=== PATIENT | female | born 1930 | race Caucasian/White ===

== ENCOUNTER 2017-07-25 13:01 | Inpatient (IN) | payer MEDICARE ==
[2017-07-25 13:20] LABS: BASO % 0.6 % (0-6); EOS % 0.6 % (0-6); GRAN % 66.6 % (47-80); HEMATOCRIT 24.3 % (35.0-47.0); LYMPH % 19.8 % (16-45); MEAN CELL VOLUME 97.2 fl (81-97); MEAN CORPUSCULAR HGB CONC 28.8 g/dl (32-36); MEAN PLATELET VOLUME 11.4 fl (7.4-10.4); MONO % 12.4 % (0-9); PLATELET COUNT 154 K/uL (130-400); RED CELL DISTRIBUTION WIDTH 16.8 % (11.5-14.5); WHITE BLOOD COUNT W/O DIFF 3.4 K/uL (4.2-12.2)
[2017-07-25] MEDS ORDERED: 0.9 % SODIUM CHLORIDE 1000ML 1,000 ML IV PRN (13:50)
[2017-07-25 14:03] LABS: ABO GROUP O; ANTIBODY SCREEN NEGATIVE (NEGATIVE); RH TYPE POSITIVE
[2017-07-25 14:04] LABS: IMMED. SPIN CROSSMATCH COMPATIBLE
[2017-07-25] MEDS ORDERED: POLYETHYLENE GLY 17 GM PACKET PO ONE (16:33)
[2017-07-25] MEDS: AMLODIPINE BESYLATE 5MG TAB PO SCH (18:52)
[2017-07-25] MEDS: CLONIDINE HCL 0.1 MG TABLET PO SCH ×2 (19:59→21:17)
[2017-07-25] MEDS: PANTOPRAZOLE SODIUM IV 40 MG VIAL IVP SCH (20:54)
[2017-07-25 21:05] LABS: HEMATOCRIT 28.2 % (35.0-47.0); HEMOGLOBIN 8.2 gm/dl (11.6-16.0)
[2017-07-25] MEDS: SERTRALINE HCL 50 MG TABLET PO SCH (21:57)
[2017-07-25] MEDS: METOPROLOL TART 25 MG TABLET PO SCH (21:57)
[2017-07-25] MEDS: TRAZODONE 50 MG TABLET PO PRN (21:58)
[2017-07-25] MEDS ORDERED: MAGNESIUM CITRATE 296 ML BTL PO ONE (22:57)
[2017-07-26 06:48] LABS: HEMATOCRIT 30.1 % (35.0-47.0); HEMOGLOBIN 8.7 gm/dl (11.6-16.0)
[2017-07-26] MEDS: PANTOPRAZOLE SODIUM IV 40 MG VIAL IVP SCH ×2 (09:48→21:19)
--- NOTE | 2017-07-26 11:10 | History and Physical Report ---
DATE OF ADMISSION: 07/25/2017 Surgeon: Trent Flores DO CHIEF COMPLAINT: Anemia, short of breath, weakness. HISTORY OF PRESENT ILLNESS: This 87-year-old female had noticed black tarry stools approximately 10 days ago, weak, short of breath. She was seen in the office, ordered outpatient CBC, which showed a hemoglobin of 7.0. Actually, she had a hemoglobin done a week earlier which was about 5.9, and she was placed on iron therapy, but she is still very short of breath, weak, and at this point I felt it necessary that she gets a blood transfusion of 1 unit of blood and a GI consult to see if she has an ulcer or other GI abnormalities that is bleeding. PAST MEDICAL HISTORY: Hypertension, anxiety, GERD. PAST SURGICAL HISTORY: Hysterectomy and appendectomy. MEDICATIONS ON ADMISSION: 1. Simvastatin 10 mg at bedtime. 2. Iron 325 q.daily. 3. Fenofibrate 160 daily. 4. Amlodipine 5 mg daily. 5. Vitamin D3, 50,000 units weekly. 6. Sertraline 25 daily. 7. Omeprazole 20 mg b.i.d. 8. Metoprolol tartrate 25 mg b.i.d. 9. Clonidine 0.2 mg b.i.d. 10. Trazodone 25 mg at h.s. 11. Ascorbic acid 1000 mg daily. 12. Calcium with vitamin D, 1 a day. ALLERGIES: PENICILLIN, SULFA. FAMILY PSYCHOSOCIAL HISTORY: Unremarkable. She never smoked, no alcohol or drug use. Mother had cancer and heart disease. REVIEW OF SYSTEMS: HEENT: No upper respiratory infection symptoms, cough, cold, or congestion. CARDIOVASCULAR: No chest pain, palpitations, or arrhythmias. RESPIRATORY: Short of breath when she walks around. Feels like she is going to pass out. GASTROINTESTINAL: No nausea, vomiting, diarrhea. She had black melanotic stools approximately 10 days ago. GENITOURINARY: No dysuria, hematuria, or frequency or burning on urination. MUSCULOSKELETAL: No joint or bone abnormalities. NEUROLOGIC: No CVA paralysis or paresthesias. ENDOCRINE: No diabetes or thyroid disease. INTEGUMENT: No rash, ulcer, change in moles, no yellow skin. PHYSICAL EXAMINATION: GENERAL: Height is 5 feet 1 inch, weight is 132 pounds. VITAL SIGNS: Temperature 97.2, pulse is 114, blood pressure is 192/75, respiratory rate is 18, pulse OX is 99% on room air. HEENT: Pupils are equal, round, and reactive to light and accomodation. Extraocular muscles intact. Throat is clear. Nose is clear. Tympanic membranes are corea. NECK: Supple. No jugular venous distention, no hepatojugular reflux, no carotid bruits. Thyroid is smooth. CARDIOVASCULAR: Regular rate and rhythm without murmurs, clicks, rubs, or gallops. RESPIRATORY: Clear to auscultation and percussion. ABDOMEN: Soft and nontender, no hepatosplenomegaly, no masses, no tenderness. Bowel sounds are active. No bruits. EXTREMITIES: No pitting edema, no cyanosis, no clubbing. Full range of motion, peripheral pulses are good. BREASTS: Deferred. GYNECOLOGIC: Deferred. RECTAL: Deferred. NEUROLOGIC: Cranial nerves 2 through 12 intact. No gross defects. Sensation normal, strength normal, deep tendon reflexes equal bilaterally. Babinski's is negative. MENTAL STATUS: Alert and oriented x 3. IMPRESSION: 1. Anemia. 2. GI bleed upper. 3. Status post hypertension. 4. Anxiety. PLAN: 1. Transfuse 1 unit of blood. 2. Start back the blood pressure medications. 3. Follow up GI consult tomorrow and make her n.p.o. after midnight for a possible EGD and colonoscopy and start the colonoscopy prep. INPATIENT CERTIFICATION: Admit to inpatient care. Based on my medical assessments after consideration of the patient's risk factors, age, comorbidities, and the patient's presenting symptoms, I expect that this patient will remain in the hospital greater than or equal to two midnights and that the services needed warrant inpatient care because of a hemoglobin of 7.0, GI evaluation, estimated length of stay 2 to 3 days. The patient may reasonably be expected to be discharged or transferred to a hospital within 96 hours after admission to [facility]. I certify that my determination is accordance with my understanding of Medicare requirements for reasonable and necessary inpatient services. [facility]
[2017-07-26] MEDS: SERTRALINE HCL 50 MG TABLET PO SCH (13:33)
[2017-07-26] MEDS: ASCORBIC ACID 500 MG TAB PO SCH (13:33)
[2017-07-26] MEDS: METOPROLOL TART 25 MG TABLET PO SCH ×2 (13:34→21:20)
[2017-07-26] MEDS: CLONIDINE HCL 0.1 MG TABLET PO SCH ×2 (13:34→21:19)
[2017-07-26] MEDS: AMLODIPINE BESYLATE 5MG TAB PO SCH (13:35)
--- NOTE | 2017-07-26 13:50 | Medical Records Consult ---
DATE OF CONSULTATION: 07/26/2017 REFERRING PHYSICIAN: Trent Flores DO REASON FOR CONSULTATION: Anemia and melena. HISTORY OF CHIEF COMPLAINT: The patient is a very pleasant 87-year-old woman who presented with progressive onset of tarry stools and shortness of breath. She states this began in late June 2017 and progressed subsequently over the last several weeks. She also had bouts of coffee-ground emesis. She states her melena seemed to have subsided, as did her vomiting. She does have a prior history of a gastric ulcer. She states she takes omeprazole twice per day at home. Does not take any antiinflammatory medications or aspirin. She has been taking iron, however. PAST MEDICAL HISTORY: Includes hypertension, anxiety, GERD, and hypercholesterolemia. SURGICAL HISTORY: She has had hysterectomy and appendectomy. HOME MEDICATIONS: Calcium, ascorbic acid, trazodone, clonidine, metoprolol, omeprazole, sertraline, vitamin D, amlodipine, fenofibrate, iron, and simvastatin. ALLERGIES: Penicillin and sulfa. SOCIAL HISTORY: Denies tobacco, alcohol, or illicit drugs. FAMILY HISTORY: Cancer and heart disease. REVIEW OF SYSTEMS: Noted per the H&P and admission and the History of Present Illness. PHYSICAL EXAMINATION: VITAL SIGNS: Pulse is 55. Blood pressure 132/80. Respirations 18. Room air sat of 97%. GENERAL: She is awake, alert, oriented x 3. Nontoxic appearance. She appears to be in no acute distress. She appears younger than her stated age. HEENT: Head is atraumatic. Normocephalic. Skin is warm and dry. Nonjaundiced. Head reveals no temporal muscle wasting. Extraocular muscles intact. No conjunctival injection or scleral icterus was noted. NECK: Trachea was midline. Thyroid nonpalpable. No cervical lymphadenopathy noted. HEART: Regular rate and rhythm, although slightly bradycardic. LUNGS: Clear to auscultation. No rhonchi, rales or wheezing. Normal to percussion. ABDOMEN: Soft. Positive bowel sounds. There was no guarding, rebound, rigidity, tenderness or palpable hepatosplenomegaly. EXTREMITIES: No clubbing, cyanosis or edema. LABORATORY STUDIES: White count 3.4, hemoglobin 8.2, hematocrit 28.2, platelets 154, iron 22, BUN 19, creatinine 1. That was on 07/17/2017. IMPRESSIONS: 1. Melena and hematemesis, rule out upper GI hemorrhage versus occult lower GI bleed, questionably related to peptic ulcer disease, GERD, dual lesion versus lower GI source. 2. Likely chronic with acute blood-loss anemia as well. 3. Hypertension by history. 4. Hyperlipidemia by history. RECOMMENDATIONS: Will proceed with an upper endoscopy. If that is unremarkable, then a colonoscopy would be suggested. However, should the upper GI exam delineate the source for her anemia, I do not believe pursuing a lower GI exam would be necessary. As always, thank you for allowing me to participate in the healthcare of your patient. [place]
[2017-07-26] MEDS ORDERED: FENTANYL PF 100MCG/2ML VIAL IV ONE (14:49)
[2017-07-26] MEDS ORDERED: LIDOCAINE 2% MDV (20MG/ML) 20ML VIAL IV ONE (14:49)
[2017-07-26] MEDS ORDERED: PROPOFOL 10 MG/ML VIAL IV ONE (14:49)
[2017-07-26] MEDS: TRAZODONE 50 MG TABLET PO PRN (23:14)
[2017-07-27 06:42] LABS: HEMATOCRIT 29.3 % (35.0-47.0); HEMOGLOBIN 8.6 gm/dl (11.6-16.0)
[2017-07-27] MEDS: METOPROLOL TART 25 MG TABLET PO SCH (10:19)
[2017-07-27] MEDS: CLONIDINE HCL 0.1 MG TABLET PO SCH (10:20)
[2017-07-27] MEDS: ASCORBIC ACID 500 MG TAB PO SCH (10:20)
[2017-07-27] MEDS: SERTRALINE HCL 50 MG TABLET PO SCH (10:21)
[2017-07-27] MEDS: AMLODIPINE BESYLATE 5MG TAB PO SCH (10:21)
[2017-07-27] MEDS: PANTOPRAZOLE SODIUM IV 40 MG VIAL IVP SCH (10:25)
--- NOTE | 2017-07-27 12:19 | Discharge Note ---
VTE H&P Assessment - Risk for VTE Risk for VTE: No Risk Level: Very Low Risk Assessment Date: 07/26/17 Risk Assessment Time: 20:00 VTE Orders Placed or Will Be Placed: No VTE Reason for No Prophylaxis: Contraindicated, Not Indicated Discharge Medications - Discharge Medications Home Medications: Ambulatory Orders Amlodipine Besylate [Norvasc] 5 mg PO DAILY 07/25/17 [Last Taken Unknown] Ascorbic Acid [Vitamin C] 1,000 mg PO DAILY 07/25/17 [Last Taken Unknown] Calcium Carbonate/Vitamin D3 [Calcium 1,000 + D3 Caplet] PO DAILY 07/25/17 [ Last Taken Unknown] Cholecalciferol (Vitamin D3) [Vitamin D3] 50,000 unit PO WEEKLY 07/25/17 [Last Taken Unknown] Clonidine HCl 0.2 mg PO BID 07/25/17 [Last Taken Unknown] Fenofibrate Nanocrystallized [Triglide] 160 mg PO DAILY 07/25/17 [Last Taken Unknown] Ferrous Sulfate [Iron] 325 mg PO DAILY 07/25/17 [Last Taken Unknown] Metoprolol Tartrate [Lopressor] 25 mg PO BID 07/25/17 [Last Taken Unknown] Omeprazole 20 mg PO DAILY 07/25/17 [Last Taken Unknown] Sertraline HCl [Zoloft] 25 mg PO DAILY 07/25/17 [Last Taken Unknown] Simvastatin [Zocor] 10 mg PO QHS 07/25/17 [Last Taken Unknown] Trazodone HCl [Desyrel] 25 mg PO QHS 07/25/17 [Last Taken Unknown] Amlodipine Besylate [Norvasc] 5 mg PO DAILY tab 07/27/17 [Last Taken Unknown] Ascorbic Acid [Vitamin C] 1,000 mg PO DAILY tab 07/27/17 [Last Taken Unknown] Clonidine HCl [Catapres] 0.2 mg PO BID tablet 07/27/17 [Last Taken Unknown] Metoprolol Tartrate [Lopressor] 25 mg PO BID tab 07/27/17 [Last Taken Unknown] Trazodone HCl [Desyrel] 25 mg PO QHS PRN tab 07/27/17 [Last Taken Unknown] Discharge Note - Date Date of Discharge Note: 07/27/17 Disposition: Home, Self-Care Condition: (1) Good Referrals: Ternt Flores D.O. [Primary Care Provider] - Activity at Discharge: Increase Activity as Tolerated Diet at Discharge: Low Salt Diet
--- NOTE | 2017-07-27 12:27 | Discharge Note ---
VTE H&P Assessment - Risk for VTE Risk for VTE: No Risk Level: Very Low Risk Assessment Date: 07/26/17 Risk Assessment Time: 20:00 VTE Orders Placed or Will Be Placed: No VTE Reason for No Prophylaxis: Contraindicated, Not Indicated Discharge Medications - Discharge Medications Home Medications: Ambulatory Orders Amlodipine Besylate [Norvasc] 5 mg PO DAILY 07/25/17 [Last Taken Unknown] Ascorbic Acid [Vitamin C] 1,000 mg PO DAILY 07/25/17 [Last Taken Unknown] Calcium Carbonate/Vitamin D3 [Calcium 1,000 + D3 Caplet] PO DAILY 07/25/17 [ Last Taken Unknown] Cholecalciferol (Vitamin D3) [Vitamin D3] 50,000 unit PO WEEKLY 07/25/17 [Last Taken Unknown] Clonidine HCl 0.2 mg PO BID 07/25/17 [Last Taken Unknown] Fenofibrate Nanocrystallized [Triglide] 160 mg PO DAILY 07/25/17 [Last Taken Unknown] Ferrous Sulfate [Iron] 325 mg PO DAILY 07/25/17 [Last Taken Unknown] Metoprolol Tartrate [Lopressor] 25 mg PO BID 07/25/17 [Last Taken Unknown] Omeprazole 20 mg PO DAILY 07/25/17 [Last Taken Unknown] Sertraline HCl [Zoloft] 25 mg PO DAILY 07/25/17 [Last Taken Unknown] Simvastatin [Zocor] 10 mg PO QHS 07/25/17 [Last Taken Unknown] Trazodone HCl [Desyrel] 25 mg PO QHS 07/25/17 [Last Taken Unknown] Amlodipine Besylate [Norvasc] 5 mg PO DAILY tab 07/27/17 [Last Taken Unknown] Ascorbic Acid [Vitamin C] 1,000 mg PO DAILY tab 07/27/17 [Last Taken Unknown] Clonidine HCl [Catapres] 0.2 mg PO BID tablet 07/27/17 [Last Taken Unknown] Metoprolol Tartrate [Lopressor] 25 mg PO BID tab 07/27/17 [Last Taken Unknown] Trazodone HCl [Desyrel] 25 mg PO QHS PRN tab 07/27/17 [Last Taken Unknown] Discharge Note - Date Date of Discharge Note: 07/27/17 Disposition: Home, Self-Care Condition: (1) Good Additional Instructions: follow up with Dr. Flores Aug 02 Referrals: Trent Flores D.O. [Primary Care Provider] - Activity at Discharge: Increase Activity as Tolerated
--- NOTE | 2017-07-27 13:10 | Operative Note ---
DATE OF SURGERY: 07/26/2017 OPERATION: 1. ESOPHAGOGASTRODUODENOSCOPY. 2. COLONOSCOPY. PREOPERATIVE DIAGNOSIS: Melena and acute blood loss anemia. POSTOPERATIVE DIAGNOSES: 1. Large hiatal hernia without obvious GI bleeding noted. 2. Severe sigmoid diverticulosis. No obvious acute bleeding seen. PROCEDURE: After informed consent was obtained from the patient, she was placed in the left lateral decubitus position in the endoscopy suite, sedated and monitored by the department of anesthesia. The plan was to perform an upper endoscopy and if this delineated the source for her anemia, then no lower GI exam would be performed. However, if the upper GI exam was negative, a lower scope wound then be performed. The patient was in agreement. Once sedated, a well-lubricated [id number] gastroscope was placed in the posterior oropharynx and under direct visualization passed to the proximal esophagus. The endoscope was advanced through the proximal, mid, and distal esophagus. There was a large 10 cm hiatal hernia with the GE junction at 30 cm and diaphragmatic hiatus noted at 40 cm. No fresh or old blood was seen in the upper GI tract. The hiatal hernia was carefully inspected. No Sarthak's lesions were noted. The antrum, pylorus, duodenal bulb and sweep were also unremarkable. J-turn views of the proximal stomach revealed a hiatal hernia without any obvious GI bleeding sites noted. The endoscope was then straightened and retracted from the patient with no new findings noted. Digital rectal exam was performed which was unremarkable. A well-lubricated [id number] colonoscope was inserted into the rectum and advanced to the cecum. Preparation quality was good to excellent. The cecum, ileocecal valve, ascending colon, transverse colon, descending colon, sigmoid colon, and rectum were unremarkable other than severe sigmoid diverticular changes being noted. There was no fresh or old blood seen throughout the GI tract. Forward and J-turn views of the rectum and anorectum were unremarkable. The endoscope was straightened, the rectal ampulla deflated, and the endoscope was removed. RECOMMENDATIONS: I would suggest the patient resume her iron therapy, continue her proton pump inhibitor therapy. If recurrent bleeding is observed, then perhaps a capsule endoscopy would be helpful. As always, thank you for allowing me to participate in the healthcare of your patients. CC: Dr. Sandra BLANC
[2017-07-27] MEDS ORDERED: PROPOFOL 10 MG/ML VIAL IV ONE (14:39)
[2017-07-27] MEDS ORDERED: FENTANYL PF 100MCG/2ML VIAL IV ONE (14:39)
[2017-07-27] MEDS ORDERED: LIDOCAINE 2% MDV (20MG/ML) 20ML VIAL IV ONE (14:39)
--- NOTE | 2017-07-27 15:50 | Discharge Summary ---
DATE: 07/27/2017 DISCHARGE DIAGNOSES: 1. GI bleed. 2. Diverticular bleeding. 3. Possible upper GI bleed, which has resolved. 4. Status post hypertension. 5. Status post GERD. 6. 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 ATTENDING PHYSICIAN: Trent Flores DO REASON FOR HOSPITALIZATION: Anemia, shortness of breath, weakness, and GI bleed. This 87-year-old female had noticed black tarry stools approximately 10 days ago, weak, short of breath. She was seen in the office. Ordered outpatient CBC which showed a hemoglobin 7.0. The actual first hemoglobin was 5.9. She was started on iron and vitamin C, it came up to 7.0. She was still very short of breath, put her in the hospital for a blood transfusion and to see GI for possible EGD and colonoscopy if necessary. She was transfused with 1 unit of blood and GI consult was obtained. SIGNIFICANT FINDINGS: The hemoglobin was 7.0 initially and went up to 8.7 after 1 unit of blood. No bloody stools. Her discharge hemoglobin was 8.6. THERAPY PROVIDED: She was given 1 unit of blood. GI consult. EGD was performed by Dr. Ribera which showed no evidence of bleeding. She had a colonoscopy which showed lots of diverticulosis but no evidence of bleeding, so it possibly could be a high diverticular bleed or an upper GI bleed that was not seen by EGD. If she re-bleeds, he recommends a camera for evaluating the small intestines. In the meantime, iron and continue vitamin C. HOSPITAL COURSE: The patient gradually improved. CONDITION ON DISCHARGE: Much improved. DISCHARGE INSTRUCTIONS: Follow up with Dr. Flores in 1 week. Actually, next ; 6 days. Continue iron therapy once a day and vitamin C once a day. No aspirin, no nonsteroidal anti-inflammatories. Continue her simvastatin 10 mg daily, fenofibrate 160 mg daily, amlodipine 5 mg daily, vitamin D 50,000 once a week, sertraline 25 mg daily, omeprazole 20 mg daily, Lopressor 25 mg b.i.d., clonidine 0.2 mg b.i.d., trazodone 25 mg h.s., vitamin C 1000 mg daily, calcium with vitamin D once a day, iron 325 a day. [facility]
== END 2017-07-27 14:50 | disposition home or self-care (01) | DRG 812 ==
LOC: LAB 13:01 → MEDSURG 13:35 → UNDODISIN 07-26 14:10
PROVIDERS: ADMIT Emergency Medicine; ATTEND Emergency Medicine
PROC: 30233N1 Transfusion of Nonautologous Red Blood Cells into Peripheral Vein, Percutaneous Approach (ICD-10-PCS; principal; 2017-07-25)
PROC: 0DJ08ZZ Inspection of Upper Intestinal Tract, Via Natural or Artificial Opening Endoscopic (ICD-10-PCS; 2017-07-26)
PROC: 0DJD8ZZ Inspection of Lower Intestinal Tract, Via Natural or Artificial Opening Endoscopic (ICD-10-PCS; 2017-07-26)
DX: D62 Acute posthemorrhagic anemia (principal); K92.1 Melena; K92.0 Hematemesis; E78.00 Pure hypercholesterolemia, unspecified; E78.5 Hyperlipidemia, unspecified; K57.30 Diverticulosis of large intestine without perforation or abscess without bleeding; K44.9 Diaphragmatic hernia without obstruction or gangrene; R53.1 Weakness
CPT/HCPCS: 83540; 85014; 85018; 85025; 86850; 86900; 86901; C9113